=== PATIENT | female | born 1985 | race Caucasian/White ===

== ENCOUNTER 2019-11-25 17:35 | Inpatient (IN) | payer BC, SELFPAY ==
[2019-11-25] VITALS (10 sets, daily range): BP systolic 114–141; BP diastolic 62–78; PULSE 68–91; TEMP 36.8–36.9; BMI 37.8
--- NOTE | 2019-11-25 18:15 | PC.NURSE ---
Called Dr. Emanuel to confirm antibiotic order for positive GBS. Informed of allergies. OK to give Ampicillin.
[2019-11-25 18:26] LABS: Basophils Percent Auto 0.5 % (0.2-1.2); Eosinophils Absolute Auto 0.1 K/mm3 (0-0.3); Eosinophils Percent Auto 1.5 % (0-4.4); Hematocrit 36.7 % (37.0-47.0); Hemoglobin 12.1 g/dL (12.0-15.0); Immature Granulocyte Absolute 0.04 K/mm3 (0.00-0.031); Immature Granulocyte Percent A 0.5 % (0-0.5); Lymphocytes Absolute Auto 1.43 K/mm3 (0.9-3.2); Lymphocytes Percent Auto 16.5 % (18.3-44.2); Mean Corpuscular Hemoglobin 28.1 pg (26-34); Mean Corpuscular Volume 85.3 fl (80-100); Mean Platelet Volume 9.8 fl (7.4-10.4); Monocytes Absolute Auto 0.7 K/mm3 (0.1-0.6); Monocytes Percent Auto 7.5 % (2.6-8.5); Neutrophils Absolute Auto 6.4 K/mm3 (1.3-6.7); Neutrophils Percent Auto 73.5 % (45.5-73.1); Platelet Count Result 312 k/mm3 (150-375); Red Cell Distribution Width 14.4 % (11.5-14.5); White Blood Count 8.7 K/mm3 (4.5-10.0)
[2019-11-25] MEDS: DINOPROSTONE 10 MG VAG INSERT VAGINAL (18:49)
[2019-11-25] MEDS: LACTATED RINGERS 1,000 ML 125 ML IV CONT ×2 (18:50→23:01)
[2019-11-25] MEDS: AMPICILLIN 2 GM/NS 100 ML 2 GM/100 ML BAG IVPB (18:51)
[2019-11-25] MEDS: AMPICILLIN 1 GM/NS 50 ML 1 GM/50 ML BAG IVPB (23:00)
[2019-11-25] MEDS: ESCITALOPRAM OXALATE 10 MG TABLET 20 MG PO (23:26)
[2019-11-26] VITALS (60 sets, daily range): BP systolic 87–155; BP diastolic 46–124; PULSE 59–108; RESP 16–18; TEMP 36.6–37; O2SAT 89–100
--- NOTE | 2019-11-26 05:59 | WPDANESEPP ---
Anes - Eval Pre Procedure Procedure: labor epidural Date/Time: 11/26/19 05:59 Surgeon: chanda Preop Diagnosis: Abd pain with contractions Pre Op Diagnosis: Inductio of Labor Patient Data Age: 34 Gender: F Height: 5 ft 4 in Weight: 100 kg Last Vital Signs Temp 97.9 F 11/26/19 03:00 Pulse 66 11/26/19 03:06 BP 112/61 11/26/19 03:06 Allergies Allergy/AdvReac Type Severity Reaction Status Date / Time cephalexin [From Keflex] Allergy Other Verified 10/29/19 15:47 Home Medications Medication Instructions Recorded Confirmed Type PNV cmb#95-ferrous fumarate-FA 1 tablet PO DAILY 10/29/19 10/29/19 History [] albuterol sulfate 2 puff INHALATION QID PRN 10/29/19 10/29/19 History aspirin [Adult Low Dose Aspirin] 81 mg PO DAILY 10/29/19 10/29/19 History cetirizine [Zyrtec] 10 mg PO DAILY 10/29/19 10/29/19 History cholecalciferol (vitamin D3) 125 mcg PO DAILY 10/29/19 10/29/19 History [Vitamin D3] docusate sodium [Colace] 100 mg PO DAILY 10/29/19 10/29/19 History escitalopram oxalate [Lexapro] 20 mg PO DAILY 10/29/19 10/29/19 History omeprazole 10 mg PO ONCE 10/29/19 10/29/19 History simethicone [Gas-X Extra Strength] 125 mg PO DAILY PRN 10/29/19 10/29/19 History Laboratory Tests 11/25/19 11/25/19 11/25/19 18:12 18:12 18:12 WBC 8.7 K/mm3 K/mm3 (4.5-10.0) RBC 4.30 M/mm3 M/mm3 (4.2-5.4) Hgb 12.1 g/dL g/dL (12.0-15.0) Hct 36.7 % L % (37.0-47.0) MCV 85.3 fl fl (80-100) MCH 28.1 pg pg (26-34) MCHC 33.0 g/dl g/dl (32-36) RDW 14.4 % % (11.5-14.5) Plt Count 312 k/mm3 k/mm3 (150-375) MPV 9.8 fl fl (7.4-10.4) Immature Gran % (Auto) 0.5 % % (0-0.5) Neut % (Auto) 73.5 % H % (45.5-73.1) Lymph % (Auto) 16.5 % L % (18.3-44.2) [place] % (Auto) 7.5 % % (2.6-8.5) Eos % (Auto) 1.5 % % (0-4.4) Baso % (Auto) 0.5 % % (0.2-1.2) Lymph # (Auto) 1.43 K/mm3 K/mm3 (0.9-3.2) [place] # (Auto) 0.7 K/mm3 H K/mm3 (0.1-0.6) Eos # (Auto) 0.1 K/mm3 K/mm3 (0-0.3) Baso # (Auto) 0.0 K/mm3 K/mm3 (0.0-0.1) Abs Immat Gran (auto) 0.04 K/mm3 H K/mm3 (0.00-0.031) Absolute Neuts (auto) 6.4 K/mm3 K/mm3 (1.3-6.7) Absolute Nucleated RBC 0.0 K/mm3 K/mm3 (0.0-0.012) Nucleated RBC % 0.0 % % (0.0-0.2) RPR Pending Blood Type A Positive Antibody Screen Negative Patient hx anesthesia problems: none Family hx anesthesia problems: none [facility] Past Medical History Medical History Anxiety and depression Chlamydia GERD (gastroesophageal reflux disease) Obesity and not yet delivered Family History Family History Grandparent Hypertension High cholesterol Mother Asthma High cholesterol Sibling Asthma Social History Social History Smoking status: Current some day smoker Tobacco type: cigarettes Second hand tobacco smoke exposure: No Substance use: current Last use: 3 WEEKS AGO Gender identity (if verbalized by the patient): Female Spiritual care concerns: Yes (WOULD LIKE MACHINE CARTON MARKER TO SEE HER IF SOMETHING WERE TO HAPPEN TO HER) Exam Day of Procedure 11/26/19 05:59 Patient weight: obese Airway: Mallampati scale class II Neurological: alert and oriented
[2019-11-26 06:43] LABS: Rapid Plasma Reagin Non-Reactive (NonReactive)
[2019-11-26] MEDS: AMPICILLIN 1 GM/NS 50 ML 1 GM/50 ML BAG IVPB ×2 (07:19→11:20)
[2019-11-26] MEDS: OXYTOCIN 30 UNITS/NS 500 ML 30 UNITS/500 ML BAG 6 UNITS IV CONT ×2 (07:20→12:45)
--- NOTE | 2019-11-26 07:42 | WPDOBADMIT ---
Obstetrics - Admit Note Admission Note: record reviewed. No pertinent additions to the history and/or any subsequent changes in the physical findings that are not consistent with the expected course of the were found. Additions to the history and/or subsequent changes in the physical findings follow. None.Here for MIL at 39 2/7 wks. Cervix now /-2 anterior. Feels like scarred from LEEP. AROM with meconium. Explained to patient and and peds will be notified by RN. FHTs reactive.
[2019-11-26] MEDS: ONDANSETRON INJ 4 MG/2 ML VIAL IV PUSH (09:57)
[2019-11-26] MEDS: LACTATED RINGERS 1,000 ML 125 ML IV CONT (10:01)
--- NOTE | 2019-11-26 12:27 | PM.OBPRVD ---
OB - Delivery Note Procedure Delivery date: 11/26/19 Procedure: events: Labor Induction Induction method: AROM, per pitocin protocol and other (cervadil) Delivery monitor: external FHT and external uterine Route of delivery: Laceration description: Periurethral - 2nd Degree (right between labia minora and clitoral garcia; 2nd degree perineal left mediolateral) Delivery repair: vicryl (3-0 ) Specimen: Yes (placenta) Estimated blood loss (mL): 200 Anesthesia type: Epidural Disposition: floor Baby Weeks of gestation at delivery: 39 gender: Female Weight (pounds): 6 Weight (ounces): 4 presentation: vertex Placenta delivery description: Spontaneous cord vessel description: 3 Vessels score one minute: 6 score five minutes: 9 Narrative: meconium noted at AROM and peds notified but not present for delivery; per RN was told to call if needed
--- NOTE | 2019-11-26 12:30 | PM.OBDSVD ---
DS: Discharge Diagnosis Discharge Diagnosis (1) (normal spontaneous vaginal delivery): Code(s): O80 - Encounter for full-term uncomplicated delivery Status: Acute (2) 39 weeks gestation of : Code(s): Z3A.39 - 39 weeks gestation of Status: Acute OB - DS: Summary OB Procedures : Ultrasound OB Procedures Intrapartum: Spontaneous Vag Delivery OB Procedures: : None Peripartum Data Delivery Method: Natural Vaginal Laceration description: Periurethral - 2nd Degree (right between labia minora and clitoral garcia; 2nd degree perineal LML) complications: none Status at Discharge Functional status at discharge: independent ambulation Overall status at discharge: patient is progressing back to baseline Time Spent with Patient Time attestation: Total time spent providing and/or coordinating discharge services: DS: Data Data Completed and Pending Labs on day of discharge: Labs from last 24 hours 11/25/19 11/25/19 11/25/19 18:12 18:12 18:12 WBC 8.7 RBC 4.30 Hgb 12.1 Hct 36.7 L MCV 85.3 MCH 28.1 MCHC 33.0 RDW 14.4 Plt Count 312 MPV 9.8 Immature Gran % (Auto) 0.5 Neut % (Auto) 73.5 H Lymph % (Auto) 16.5 L [place] % (Auto) 7.5 Eos % (Auto) 1.5 Baso % (Auto) 0.5 Lymph # (Auto) 1.43 [place] # (Auto) 0.7 H Eos # (Auto) 0.1 Baso # (Auto) 0.0 Abs Immat Gran (auto) 0.04 H Absolute Neuts (auto) 6.4 Absolute Nucleated RBC 0.0 Nucleated RBC % 0.0 RPR Non-reactive Blood Type A Positive Antibody Screen Negative Discharge Plan Discharge Attending physician on discharge: Fanny Emanuel Discharging Clinician: Fanny Emanuel Anticipated Discharge Date/Time: 11/27/19 00:32 Patient Disposition: Home, Self-Care Activity: pelvic rest Diet: regular Discharge Instructions: Education: Mom and Baby Guide Given to: Mother Follow-Up: Call your delivering provider's office for an appointment to be seen in: 4 Weeks Mom and baby should come to the [facility] for the follow-up appointment. Appointment Date/Time: December 01, 2019 at 11:00 am What to expect at your follow-up visit: Blood Pressure Check Physical Assessment Call [phone] if you are unable to keep your appointment time. BREAST CARE: 1. Wear a snug supportive bra. 2. For engorgement discomfort: Breast Feeding: A. Apply warm moist washcloths B. Express milk as needed to relieve engorgement C. Wear loose clothing Bottle Feeding: A. May apply ice packs 3. For sore nipples: A. Identify correct latch-on B. Apply warm moist washcloths before and after nursing C. Air dry nipples after nursing D. May apply Lansinoh cream to nipples EPISIOTOMY/PERINEAL CARE: 1. Until bleeding stops, use your la bottle after urinating 2. Change your pad frequently throughout the day 3. You may take sitz baths several times a day (fill your bathtub with warm water and soak for 20 minutes.) Do NOT bathe in the water 4. No tub baths until seen by your physician - You may shower ACTIVITY: 1. Rest as much as possible. 2. Do not exercise or lift anything heavier than your baby (such as laundry or other children.) 3. Avoid stairs or driving as much as possible. 4. Do not put anything into the vagina. No douching, tampons, or sexual activity until seen by physician. NOTIFY PHYSICIAN IF YOU HAVE ANY QUESTIONS OR IF ANY OF THE FOLLOWING SYMPTOMS OCCUR: 1. If your perineum becomes red, swollen, or more painful than what you have experienced in the hospital. 2. If your vaginal bleeding becomes foul smelling. 3. If your vaginal bleeding becomes more heavy than a period or if your bleeding changes from pink to bright red. However, you may pass an occasional walnut-sized clot once or twice for the first w
[2019-11-26] MEDS: IBUPROFEN 600 MG TABLET (15:13)
[2019-11-26] MEDS: WITCH HAZEL 40 PADS 1 PAD (15:14)
[2019-11-26] MEDS: BENZOCAINE 20% AER SPR (*SP) 56 GM CAN 1 SPRAY (15:14)
--- NOTE | 2019-11-26 17:37 | PC.NURSE ---
1527-Patient transferred to post room #283 via wheelchair. Support person present. Oriented to unit, room, information board, rooming in, admission packet and security measures. Patient verbalizes understanding.
[2019-11-26] MEDS: ESCITALOPRAM OXALATE 10 MG TABLET 20 MG PO (20:20)
[2019-11-26] MEDS: ACETAMINOPHEN 325 MG TABLET 650 MG PO (20:20)
[2019-11-26] MEDS: IBUPROFEN 600 MG TABLET PO (23:55)
[2019-11-27] MEDS: ACETAMINOPHEN 325 MG TABLET 650 MG PO ×2 (05:10→20:00)
[2019-11-27 05:33] LABS: Hematocrit 31.4 % (37.0-47.0); Hemoglobin 10.1 g/dL (12.0-15.0)
--- NOTE | 2019-11-27 07:28 | WPDANLDPN2 ---
Anes-Prog Note L&D Date/Time: 11/27/19 07:28 Comfortable throughout: labor and delivery Neuraxial method: epidural Epidural/Spinal procedure site: clean & non-tender Neuro status: Neuro function grossly intact. Cardiovascular status: normal Respiratory status: normal Airway patency: baseline Mental status: baseline Post-Op hydration status: normal Vital Signs: Last Vital Signs Temp 36.8 C 11/26/19 19:00 Pulse 87 11/26/19 19:00 Resp 16 11/26/19 19:00 BP 101/58 L 11/26/19 19:00 Pulse Ox 99 11/26/19 15:36 I/O: Intake & Output 11/26/19 11/26/19 11/27/19 15:59 23:59 07:59 Intake Total 500 Balance 500 Post-procedural complaints: none Patient feedback: Patient satisfied with anesthetic care.
[2019-11-27] MEDS: MULTIVIT/MIN/PREN/FOL AC/IRON TABLET 1 TAB PO (07:54)
[2019-11-27] MEDS: DOCUSATE SODIUM 100 MG CAPSULE PO (07:54)
[2019-11-27] MEDS: IBUPROFEN 600 MG TABLET PO ×2 (07:55→16:28)
[2019-11-27 08:00] VITALS: BP 118/69; PULSE 84; RESP 18; TEMP 36.7; O2SAT 98
--- NOTE | 2019-11-27 09:19 | P.PNOB_ITS ---
OB - PN: Subj Subjective Date/time seen: 11/27/19 09:19 Patient comments: no complaints baby status: doing well [place] feeding status: exclusively breast feeding OB - PN: Obj Data Labs CBC & Chem 7: 11/27/19 05:09 Labs: Laboratory Results - last 24 hr 11/27/19 05:09 Hgb 10.1 L Hct 31.4 L OB - PN A/P Plan day: 1 Plan: routine care, discharge home (possible dc pending peds decision) and follow up 6 weeks Comments: plans micronor for bc Time Spent With Patient Time: Total time spent is greater than 50% in coordination of care (as documented) at patient's floor/unit and/or counseling patient: Exam : Bimanual exam- vagina & uterus: other (Uterus firm, nt @U)
--- NOTE | 2019-11-27 10:20 | PC.NURSE ---
Consult with pt., mother reports she wishes to pump and bottle feed. Mother has attempted and put to breast a few times since using a nipple shield. Mother states she has attempted to left breast with shield and would like to attempt on right breast with shield. Mother states she will be off for 10 weeks and would like to maybe put to breast the few week a few times, then pump and bottle only. Discussed latch and possible difficulties with only latching a few times. Discussed nipple shield precautions and possible complications. Instructions given on application and cleaning of shield. Patient able to return demonstration on proper application of shield. Discussed the need to initiate regular pumping if continues to nurse with the shield. Patient verbalizes understanding. Reviewed feeding cues, frequencies, duration of feedings, feeding elimination flow sheet, and signs of adequate intake. Demonstrated stimulation techniques to wake infant for feeding. Assisted with infant to breast with shield. Reviewed positioning/alignment in football, holding breast in C hold and guided asymmetrical latch on. Discussed rational for each. Infant was able to latch correctly. nursed eagerly, with steady draws and occasional swallowing noted. Reviewed signs of a correct latch, effective nursing and suck swallow ratio. Infant was able to maintain latch without discomfort to mother. Mother allowed to nurse for a few minutes and removed infant from breast for FOB to bottle feed. Mother states she will pump. Reviewed instructions given on breast pump care and usage, pumping schedule, nipple care, and collection and storage of breast milk. Encouraged [id number], breast massage and manual expression to stimulate supply. Assessed patient for correct flange size, placement and draw. Patient verbalizes and demonstrates understanding of instructions.
[2019-11-27 19:50] VITALS: BP 99/59; PULSE 74; RESP 16; TEMP 36.7
[2019-11-27] MEDS: ESCITALOPRAM OXALATE 10 MG TABLET 20 MG PO (20:55)
[2019-11-28] MEDS: IBUPROFEN 600 MG TABLET PO ×2 (02:30→08:19)
[2019-11-28] MEDS: WITCH HAZEL 40 PADS 1 PAD TOPICAL (08:18)
[2019-11-28] MEDS: ACETAMINOPHEN 325 MG TABLET 650 MG PO (08:18)
[2019-11-28] MEDS: DOCUSATE SODIUM 100 MG CAPSULE PO (08:18)
[2019-11-28] MEDS: MULTIVIT/MIN/PREN/FOL AC/IRON TABLET 1 TAB PO (08:18)
[2019-11-28 08:30] VITALS: BP 112/64; PULSE 74; RESP 18; TEMP 37.2
--- NOTE | 2019-11-28 11:02 | PM.OBPNVD ---
OB - PN: Subj Subjective Date/time seen: 11/28/19 11:02 doing okay mild pain with urination from tear. OB - PN: Obj Data Labs CBC & Chem 7: 11/27/19 05:09 OB - PN A/P Assessment and Plan (1) (normal spontaneous vaginal delivery): Code(s): O80 - Encounter for full-term uncomplicated delivery Status: Acute Assessment and Plan: d/c home with f/u in 6 weeks Time Spent With Patient Time: Total time spent is greater than 50% in coordination of care (as documented) at patient's floor/unit and/or counseling patient: Exam GI: Other: ff below umbilicus
--- NOTE | 2019-11-28 15:12 | PC.NURSE ---
1000 parents viewed the discharge DVD.
[2019-12-01 10:54] VITALS: BP 136/82; PULSE 66; RESP 16; TEMP 36.8; O2SAT 98
== END 2019-11-28 14:13 | disposition home or self-care (01) | DRG 807 ==
LOC: ANHLDR 11-26 12:33 → ANHOB2 11-27 09:26 → ANHLDR 12-02 07:50 → ANHOB2 12-02 07:50
PROVIDERS: Admitting Provider Obstetrics & Gynecology Gynecology; Visit Provider Obstetrics & Gynecology
DX: O99.824 Streptococcus B carrier state complicating childbirth (principal); Z37.0 Single live birth; O77.0 Labor and delivery complicated by meconium in amniotic fluid; O69.81X0 Labor and delivery complicated by cord around neck, without compression, not applicable or unspecified; O71.82 Other specified trauma to perineum and vulva; Z3A.39 39 weeks gestation of pregnancy; F17.210 Nicotine dependence, cigarettes, uncomplicated; O99.334 Smoking (tobacco) complicating childbirth; O99.214 Obesity complicating childbirth; E66.9 Obesity, unspecified
CPT/HCPCS: 36415; 85014; 85018; 85025; 86592; 86850; 86900; 86901; A9270; J0290; J1200; J2405; J2590; J2795; J3010; J7120

== ENCOUNTER → 2022-12-04 15:14 | Outpatient (CLI) | payer BC, SELFPAY ==
--- NOTE | ~2022-12-04 | US_ITS ---
Pelvic ultrasound. Clinical History: First trimester , uncertain dates Technique: Realtime transabdominal and transvaginal scanning of the pelvis was performed. Color flow Doppler and Doppler spectral analysis were performed. Findings: The uterus is anteverted, and contains an intrauterine gestation. Organ-rump length of 1.9 cm corresponds to an estimated gestational age of 8 weeks 3 days. heart rate is 163 bpm. There is a small cystic area adjacent to the gestational sac measuring 1 cm in maximum diameter, possibly a small subchronic hemorrhage. The right ovary measures 1.5 x 2.6 x 1.5 cm. No significant right ovarian or adnexal mass is seen. The left ovary measures 1.9 x 2.8 x 1.8 cm. No significant left ovarian or adnexal mass is seen. There is no evidence of free fluid in the cul de sac. Impression: Live intrauterine gestation with estimated gestational age of 8 weeks 3 days. heart rate is 163 bpm. Sonographic HIMA is 07/14/2023. Possible small subchorionic hemorrhage, as detailed above. Reviewed, dictated and finalized at location M. Impression: Live intrauterine gestation with estimated gestational age of 8 weeks 3 days. F etal heart rate is 163 bpm. Sonographic HIMA is 07/14/2023. Possible small subchorionic hemorrhage, as detailed above.
== END ==
PROVIDERS: PCP Obstetrics & Gynecology Gynecology; Visit Provider Obstetrics & Gynecology Gynecology
DX: Z36.87 Encounter for antenatal screening for uncertain dates (principal); Z3A.08 8 weeks gestation of pregnancy
CPT/HCPCS: 76801

== ENCOUNTER → 2022-12-24 15:54 | Outpatient (CLI) | payer BC, SELFPAY ==
--- NOTE | ~2022-12-24 | US_ITS ---
EXAMINATION: US OB <= 14 weeks fetus DATE: 12/24/2022 16:24 INDICATION: Follow-up subchorionic hematoma TECHNIQUE: Real-time transabdominal obstetric ultrasound. FINDINGS: Comparison to ultrasound dated 12/04/2022 The uterus measures 12.7 x 7.5 x 9.3 cm. There is an intrauterine gestational sac, with pole id entified. There is a small subchorionic hematoma measuring 9 x 5 x 4 mm. The crown rump length measur es 4.2 cm. heart tones are identified measuring 171 BPM. IMPRESSION: 1. SL IUP with an EGA of 11 weeks, 1 days (EDC by current ultrasound of 07/14/2023). 2: Small subchorionic hematoma measuring 9 x 4 x 5 mm. Reviewed, dictated and finalized at location [] IMPRESSION: 1. SL IUP with an EGA of 11 weeks, 1 days (EDC by current ultrasound of 024). 2: Small subchorionic hematoma measuring 9 x 4 x 5 mm.
== END ==
PROVIDERS: PCP Obstetrics & Gynecology Gynecology; Visit Provider Obstetrics & Gynecology Gynecology
DX: O36.8910 Maternal care for other specified fetal problems, first trimester, not applicable or unspecified (principal); Z3A.11 11 weeks gestation of pregnancy
CPT/HCPCS: 76801

== ENCOUNTER → 2023-01-23 14:47 | Outpatient (CLI) | payer BC, SELFPAY ==
--- NOTE | ~2023-01-23 | US_ITS ---
EXAMINATION: US OB follow up DATE: 01/23/2023 15:18 INDICATION: Subchorionic hematoma follow-up. Second trimester. TECHNIQUE: Real-time ultrasound of the pelvis was performed. COMPARISON: Ultrasound 12/24/2022 FINDINGS: There is a single living fetus in variable presentation. The placenta is posterior and covers the in ternal cervical os. There is no subchorionic hematoma. heart rate is 145 beats per minute (bpm) . The cervical length is 3.8 cm on transabdominal images, which is normal. The amniotic fluid volume is subjectively normal. IMPRESSION: 1. Single living fetus in variable presentation. 2. No subchorionic hematoma. 3. Placenta previa. Follow-up ultrasound is recommended to confirm resolution. Reviewed, dictated and finalized at location A.
== END ==
PROVIDERS: PCP Advanced Practice Midwife; Visit Provider Advanced Practice Midwife
DX: O36.8920 Maternal care for other specified fetal problems, second trimester, not applicable or unspecified (principal); Z3A.00 Weeks of gestation of pregnancy not specified; O44.42 Low lying placenta NOS or without hemorrhage, second trimester
CPT/HCPCS: 76816

== ENCOUNTER 2023-07-11 05:14 | Inpatient (IN) | payer BC, SELFPAY ==
[2023-07-11] VITALS (83 sets, daily range): BP systolic 81–134; BP diastolic 51–94; PULSE 61–149; RESP 16–18; TEMP 36.2–36.6; O2SAT 98–100; BMI 36.7
--- NOTE | 2023-07-11 05:58 | LDADM ---
This patient, Bailey Newman, was admitted to Labor/Delivery/Recovery 104 on 07/11/23 at 05:14. Plans for labor, pain management and were discussed with patient. Patient/family oriented to hospital policies and general routines including ID bracelet, bed and alarms, visiting hours, pain management, procedures, bathroom and other care routines, personal items, smoking policy, room service/diet and guest tray routines, infant security routines, and visiting hours. Patient/Family are encouraged to report perceived risks to care and to ask questions if they do not understand what they are told or what they should do. See OBIX for further documentation.
[2023-07-11 06:26] LABS: Basophils Percent Auto 0.6 % (0.2-1.2); Eosinophils Absolute Auto 0.1 K/mm3 (0-0.3); Hematocrit 34.6 % (37.0-47.0); Hemoglobin 11.4 g/dL (12.0-15.0); Immature Granulocyte Absolute 0.03 K/mm3 (0.00-0.031); Immature Granulocyte Percent A 0.4 % (0-0.5); Lymphocytes Absolute Auto 1.75 K/mm3 (0.9-3.2); Lymphocytes Percent Auto 26.2 % (18.3-44.2); Mean Corpuscular HGB Conc 32.9 g/dl (32-36); Mean Corpuscular Hemoglobin 28.4 pg (26-34); Mean Corpuscular Volume 86.3 fl (80-100); Mean Platelet Volume 10.1 fl (7.4-10.4); Monocytes Absolute Auto 0.5 K/mm3 (0.1-0.6); Monocytes Percent Auto 7.3 % (2.6-8.5); Neutrophils Absolute Auto 4.3 K/mm3 (1.3-6.7); Neutrophils Percent Auto 64.5 % (45.5-73.1); Platelet Count Result 260 k/mm3 (150-375); Red Blood Count 4.01 M/mm3 (4.2-5.4); Red Cell Distribution Width 13.3 % (11.5-14.5); White Blood Count 6.7 K/mm3 (4.5-10.0)
[2023-07-11] MEDS: LACTATED RINGERS 1,000 ML 125 ML IV CONT ×2 (06:47→07:54)
[2023-07-11] MEDS: OXYTOCIN 30 UNITS/NS 500 ML 30 UNITS/500 ML BAG IV CONT (06:53)
--- NOTE | 2023-07-11 08:14 | WPDOBADMIT ---
Obstetrics - Admit Note Admission Note: record reviewed. No pertinent additions to the history and/or any subsequent changes in the physical findings that are not consistent with the expected course of the were found. Additions to the history and/or subsequent changes in the physical findings follow. None.
--- NOTE | 2023-07-11 08:15 | PM.OBPNLAB ---
Pain Control Date/time seen: 07/11/23 08:05 Pain control: tolerating well Pelvic Exam Dilation (cm): 1 (1.5) Effacement (%): 80 station: -3 Amniotic membrane status: Bulging Comments: head well applied. Contractions Monitor mode: External Contraction pattern: Irregular Contraction intensity: Mild Status status: Category l Assessment and Plan Assessment: induction ongoing Comments: CNM to bedside. Discussed plan of care an option for amniotomy. Discussed risks, benefits, and expectations of breaking water. Patient is agreeable. Amniotomy performed and there was a moderate return of clear amniotic fluid. Patient tolerated procedure well. Dr. Jenae villalobos MD assuming care for pt.
--- NOTE | 2023-07-11 08:23 | WPDANESEPP ---
Anes - Eval Pre Procedure Procedure: Labor Epidural Date/Time: 07/11/23 08:23 Surgeon: Jenae Preop Diagnosis: Pain during labor Pre Op Diagnosis: IOL Patient Data Age: 37 Gender: F Height: 1.63 m Weight: 97 kg Last Vital Signs Temp 36.2 C L 07/11/23 08:00 Pulse 91 07/11/23 08:01 BP 125/72 07/11/23 08:01 O2 Del Method Room Air 07/11/23 05:57 Allergies Allergy/AdvReac Type Severity Reaction Status Date / Time cephalexin [From Keflex] Allergy Other Verified 06/28/23 12:48 doxycycline Allergy Hives Verified 06/28/23 12:48 Latex, Natural Rubber Allergy Rash Verified 06/28/23 12:48 Home Medications Medication Instructions Recorded Confirmed Type cholecalciferol (vitamin D3) 125 125 mcg PO DAILY 10/29/19 10/29/19 History mcg (5,000 unit) tablet (Vitamin D3) vit no.95-ferrous 1 tablet PO DAILY 10/29/19 10/29/19 History fumarate 28 mg-folic acid 800 mcg tablet () omeprazole 20 mg tablet,delayed 20 mg PO DAILY 06/28/23 06/28/23 History release Laboratory Tests 07/11/23 05:38 WBC 6.7 K/mm3 (4.5-10.0) RBC 4.01 L M/mm3 (4.2-5.4) Hgb 11.4 L g/dL (12.0-15.0) Hct 34.6 L % (37.0-47.0) MCV 86.3 fl (80-100) MCH 28.4 pg (26-34) MCHC 32.9 g/dl (32-36) RDW 13.3 % (11.5-14.5) Plt Count 260 k/mm3 (150-375) MPV 10.1 fl (7.4-10.4) Immature Gran % (Auto) 0.4 % (0-0.5) Neut % (Auto) 64.5 % (45.5-73.1) Lymph % (Auto) 26.2 % (18.3-44.2) [place] % (Auto) 7.3 % (2.6-8.5) Eos % (Auto) 1.0 % (0-4.4) Baso % (Auto) 0.6 % (0.2-1.2) Lymph # (Auto) 1.75 K/mm3 (0.9-3.2) [place] # (Auto) 0.5 K/mm3 (0.1-0.6) Eos # (Auto) 0.1 K/mm3 (0-0.3) Baso # (Auto) 0.0 K/mm3 (0.0-0.1) Abs Immat Gran (auto) 0.03 K/mm3 (0.00-0.031) Absolute Neuts (auto) 4.3 K/mm3 (1.3-6.7) Absolute Nucleated RBC 0.0 K/mm3 (0.0-0.012) Nucleated RBC % 0.0 % (0.0-0.2) RPR Pending Blood Type A Positive Antibody Screen Negative Patient hx anesthesia problems: none Family hx anesthesia problems: none Results Review: All pre-operative results and documents have been reviewed as part of the pre-operative evaluation. [facility] Past Medical History Medical History Anxiety and depression Chlamydia GERD (gastroesophageal reflux disease) Obesity and not yet delivered Family History Family History Grandparent Hypertension High cholesterol Mother Asthma High cholesterol Sibling Asthma Social History Social History Smoking status: Former smoker Tobacco type: cigarettes Smokeless tobacco user: other Second hand tobacco smoke exposure: No Smoking end date: 10/06/22 Substance use: former Last use: 1st trimester Do You Feel Safe in your Home?: Yes Lack of Transportation: No Lack of Food: Never True Current Housing: I Have Housing Concerned About Future Housing: No Difficulty Paying Gas/Electric Bills: No Difficulty Paying for Meds: No Currently Unemployed: No Education: High School Diploma/GED Difficulty w/ Childcare or Family Care: No Gender identity (if verbalized by the patient): Female Spiritual care concerns: No Exam Day of Procedure 07/11/23 08:23 Patient weight: obese Neurological: alert and oriented
--- NOTE | 2023-07-11 12:01 | PM.OBPRVD ---
OB - Vaginal Delivery Note Procedure Delivery date: 07/11/23 Induction method: AROM and Per Pitocin Protocol Delivery monitor: External FHT and External Uterine Route of delivery: Episiotomy description: None Laceration Description: Perineal - 1st Degree (right) Delivery repair: vicryl (3-0 on sh) Specimen: No Quantitative Blood Loss (ml): 100 Anesthesia type: Epidural Disposition: Floor Complications: No immediate complications Baby Date of : 07/11/23 Weeks of gestation at delivery: 39 Infant gender: Female presentation: vertex position: Right Occiput Anterior Placenta delivery description: Spontaneous Cord Vessel Description: 3 Vessels and Delayed Cord Clamping score one minute: 8 score five minutes: 9
--- NOTE | 2023-07-11 12:03 | P.DS_ITS ---
DS: Admitting Diagnosis Discharge Date 07/13/23 Admitting Diagnosis IUP 39 wks for KAROL DS: Discharge Diagnosis Discharge Diagnosis (1) (normal spontaneous vaginal delivery): Code(s): O80 - Encounter for full-term uncomplicated delivery Status: Acute OB - DS: Summary OB Procedures : Ultrasound OB Procedures Intrapartum: Spontaneous Vag Delivery OB Procedures: : None Peripartum Data Infant Delivery Method: Natural Vaginal Laceration Description: Perineal - 1st Degree (right) Episiotomy description: None complications: none Status at Discharge Functional status at discharge: independent ambulation Overall status at discharge: patient is progressing back to baseline Time Spent with Patient Time attestation: Total time spent providing and/or coordinating discharge services: DS: Data Data Completed and Pending Labs on day of discharge: Labs from last 24 hours 07/11/23 05:38 WBC 6.7 RBC 4.01 L Hgb 11.4 L Hct 34.6 L MCV 86.3 MCH 28.4 MCHC 32.9 RDW 13.3 Plt Count 260 MPV 10.1 Immature Gran % (Auto) 0.4 Neut % (Auto) 64.5 Lymph % (Auto) 26.2 [place] % (Auto) 7.3 Eos % (Auto) 1.0 Baso % (Auto) 0.6 Lymph # (Auto) 1.75 [place] # (Auto) 0.5 Eos # (Auto) 0.1 Baso # (Auto) 0.0 Abs Immat Gran (auto) 0.03 Absolute Neuts (auto) 4.3 Absolute Nucleated RBC 0.0 Nucleated RBC % 0.0 RPR Pending Blood Type A Positive Antibody Screen Negative Discharge Plan Discharge Attending physician on discharge: Fanny Emanuel Discharging Clinician: Fanny Emanuel Anticipated Discharge Date/Time: 07/12/23 12:03 Patient Disposition: Home, Self-Care Activity: no shower, may shower and pelvic rest Diet: regular Discharge Instructions: Continue taking your vitamin and any other supplements as previously directed (Examples: Iron, Vitamin D). You may take Tylenol 1000mg over the counter every 6 hours as needed for pain. Do not exceed 4000mg of Tylenol daily. You may continue using tucks pads and dermoplast spray if needed for a few more days. Patient Instructions: Antibiotic Form Stand Alone Forms: General Discharge Information Follow-up/Referrals: Fanny Emanuel MD [Physician] - 6 Weeks Discharge Medications: New docusate sodium 100 mg Capsule 100 mg PO BID PRN (Reason: Constipation) Qty: 60 0RF ibuprofen 600 mg Tablet 600 mg PO Q6H PRN (Reason: Cramping) Qty: 30 0RF norethindrone (contraceptive) 0.35 mg tablet 0.35 mg PO DAILY Qty: 84 3RF Continued cholecalciferol (vitamin D3) [Vitamin D3] 125 mcg (5,000 unit) Tablet 125 mcg PO DAILY PNV cmb#95-ferrous fumarate-FA [] 28 mg iron- 800 mcg Tablet 1 tablet PO DAILY omeprazole 20 mg Tablet,Delayed Release (Dr/Ec) 20 mg PO DAILY Date of admission: 07/11/23 05:14 Primary Care Provider: PHYSICIAN,POST ACUTE CARE NURSE Admitting Provider: Fanny Emanuel Attending physician on admission: Fanny Emanuel Condition: Stable
[2023-07-11] MEDS: OXYTOCIN 30 UNITS/NS 500 ML 30 UNITS/500 ML BAG 125 UNITS IV CONT (12:16)
[2023-07-11] MEDS: WITCH HAZEL 40 PADS 1 PAD TOPICAL (14:24)
[2023-07-11] MEDS: BENZOCAINE 20% AER SPR (*SP) 56 GM CAN 1 SPRAY TOPICAL (14:25)
[2023-07-11 15:53] LABS: Rapid Plasma Reagin Non-Reactive (NonReactive)
[2023-07-11] MEDS: IBUPROFEN 600 MG TABLET PO (16:15)
--- NOTE | 2023-07-11 17:53 | OBPPTRN ---
1508-Patient transferred to post room #290 via wheelchair. Support person present. Oriented to unit, room, information board, rooming in, admission packet and security measures. Patient verbalizes understanding.
[2023-07-11] MEDS: ACETAMINOPHEN 325 MG TABLET 650 MG PO (19:52)
[2023-07-11] MEDS: SIMETHICONE 80 MG TAB.CHEW PO (19:52)
[2023-07-12] MEDS: IBUPROFEN 600 MG TABLET PO ×3 (01:00→20:51)
[2023-07-12 04:50] VITALS: BP 117/71; PULSE 61; RESP 16; TEMP 36.6
[2023-07-12 05:19] LABS: Hematocrit 31.5 % (37.0-47.0); Hemoglobin 10.1 g/dL (12.0-15.0)
[2023-07-12 07:25] VITALS: BP 130/68; PULSE 63; RESP 16; TEMP 36.5; O2SAT 99
--- NOTE | 2023-07-12 07:51 | WPDANLDPN2 ---
Anes-Prog Note L&D Date/Time: 07/12/23 07:51 Comfortable throughout: labor and delivery Neuraxial method: epidural Epidural/Spinal procedure site: clean & non-tender Neuro status: Neuro function grossly intact. Cardiovascular status: normal Respiratory status: normal Airway patency: baseline Mental status: baseline Post-Op hydration status: normal Vital Signs: Last Vital Signs Temp 36.6 C 07/12/23 04:50 Pulse 61 07/12/23 04:50 Resp 16 07/12/23 04:50 BP 117/71 07/12/23 04:50 Pulse Ox 99 07/11/23 15:15 O2 Del Method Room Air 07/11/23 05:57 Pain score (VAS): 07/17 I/O: Intake & Output 07/11/23 07/11/23 07/12/23 15:59 23:59 07:59 Intake Total 500 500 500 Output Total 800 700 Balance 500 -300 -200 Post-procedural complaints: none Patient feedback: Patient satisfied with anesthetic care.
--- NOTE | 2023-07-12 08:04 | PM.OBPNVD ---
OB - PN: Subj Subjective Date/time seen: 07/12/23 0740 Interval history: Doing well. Urinating without difficulty. Denies passing any large clots. Denies dizziness with ambulating. Tolerating po food and fluids. Bonding with infant. Patient comments: no complaints and pain well controlled [place] baby status: doing well and nursing well [place] feeding status: exclusively breast feeding OB - PN: Obj Data Labs 07/12/23 04:53 Labs: Laboratory Results - last 24 hr 07/11/23 07/12/23 05:38 04:53 Hgb 10.1 L Hct 31.5 L RPR Non-reactive OB - PN A/P Assessment and Plan (1) (normal spontaneous vaginal delivery): Code(s): O80 - Encounter for full-term uncomplicated delivery Status: Acute (2) Mother currently breastfeeds: Status: Acute Plan day: 1 Plan: discharge home Comments: Desires DC home Time Spent With Patient Time: Total time spent is greater than 50% in coordination of care (as documented) at patient's floor/unit and/or counseling patient: Review of Systems Review of Systems: All systems reviewed & are unremarkable except as noted in HPI and below Exam Narrative: Alert and oriented. Mood is pleasant and cooperative. Perineum with minimal edema. Fundus firm and below umbilicus. Const: General: cooperative, healthy appearing, no acute distress and alert Orientation/consciousness: patient oriented x3 Limitations: no limitations Resp: Effort & Inspection: normal respiratory effort and able to speak in complete sentences Auscultation: clear to auscultation bilaterally Cardio: Rate: regular rate GI: Inspection: normal to inspection Auscultation: normal bowel sounds : General: Yes bladder normal to palpation External Female Exam: other (lochia WNL) Bimanual exam- vagina & uterus: bladder normal to palpation Other: Fundus firm and below U Skin: General skin exam: normal color and no rashes or lesions noted Neuro: General: patient oriented x3 and moves all extremities Cognition (Neuro): normal cognition Extrem: General: normal to inspection and no calf tenderness Psych: Appearance: grossly normal Mental Status: mental status grossly normal Affect: normal affect Thought process: Normal thought process present
[2023-07-12] MEDS: DOCUSATE SODIUM 100 MG CAPSULE PO (12:09)
[2023-07-12] MEDS: MULTIVIT/MIN/PREN/FOL AC/IRON TABLET 1 TAB PO (12:09)
[2023-07-12 12:17] VITALS: BP 122/71; PULSE 81; RESP 16; TEMP 36.6; O2SAT 99
--- NOTE | 2023-07-12 15:55 | PC.NURSE ---
Addendum entered by Lizzie Bolanos RN 07/16/23 12:47: Late entry - Mother declined initiating pumping at this consult related to her experience with her first child. Original Note: [id number] Introductions were made, then consulted with patient to assess needs related to . Mother led the conversation with her?plans to feed?her , the?experience so far, her history of pumping to feed her first related to not latching with use of a nipple shield. The parents work well together to latch infant to mothers large breast. Encouraged understanding of the benefits of skin to skin (demonstrating unwrapping and placing upright on her chest), stimulating with massage touch, changing positions to encourage wakefulness, how to watch for early feeding cues, responsive feeding, feeding on demand (aiming for 8-12 times in 24 hours, about every 2-3 hours), milk production, building/maintaining a milk supply, duration of feeding, signs of adequate intake/output and how to record on the feeding sheet. Mother works well with her with encouragement and education. Reviewed positioning and ear, shoulder, hip alignment, supporting the breast to facilitate a deep latch, asymmetrical latch (off-center), leading with the chin with a big, open, wide gape and body close to mother. Infant latched optimally to the right, then left breast in football and cross cradle position. Education given to the parents of how to visualize the suckling (with good rocking jaw motion), swallows (dropping of the lower jaw) and how to listen for drinking at the breast (the ka sound) versus non-nutritive sucking. Reviewed the pie demonstration and the intake, output, weight loss, jaundice not measured at this time, and blood sugar levels appropriate, and mother latching without pain is encouraging that going well. was able to maintain latch without pain to mother protecting the nipple with optimal positioning and latching. Encouraged supporting the wrist to promote a deep latch with the . Reviewed comfort measures of healing with a warm, wet washcloth to rinse breast, then leave open to air-dry, good handwashing when or touching the breast/nipples to prevent infection. Mother voiced understanding of skin to skin, stimulating with massage touch, responsive feedings, hand expressed colostrum, talking to infant to encourage if it has been 2 -2.5 hours since the start of the last , to call if infant does not latch, difficulty waking to breastfeed or if there is discomfort with . Resources used for education were facilitated with the visual educational handouts, tool, mom and baby guide. Inpatient/outpatient resources provided with feeding sheet, name written on the communication board, and the mom/baby guide. Parents voiced understanding of information, demonstrated learning and will call if there is a request for assistance. Reported to the Primary RN.
[2023-07-12 16:45] VITALS: BP 113/65
[2023-07-12] MEDS: LORATADINE 10 MG TABLET PO (17:21)
[2023-07-12] MEDS: SIMETHICONE 80 MG TAB.CHEW PO (17:21)
[2023-07-12] MEDS: LANOLIN (LANSINOH) 7.5 GM CREAM 1 APPLIC TOPICAL (17:21)
[2023-07-12 20:50] VITALS: BP 113/67; PULSE 85; RESP 18; TEMP 36.4
--- NOTE | 2023-07-12 20:50 | PC.NURSE ---
Patient instructed on viewing the discharge video Mother & Baby Care, The First Two Weeks online. Patient was given the opportunity and encouraged to ask questions. Patient verbalized understanding of information shared and has been given the mother/baby guide for home reference.
[2023-07-13 00:10] VITALS: BP 116/72; PULSE 74
[2023-07-13] MEDS: IBUPROFEN 600 MG TABLET PO (05:21)
--- NOTE | 2023-07-13 07:37 | PM.OBPNVD ---
OB - PN: Subj Subjective Date/time seen: 07/13/23 07:37 Interval history: Patient comments: no complaints and pain well controlled baby status: doing well OB - PN: Obj Data Labs 07/12/23 04:53 OB - PN A/P Plan day: 2 Plan: routine care, follow up 6 weeks and other (plans POP until dc home) Time Spent With Patient Time: Total time spent is greater than 50% in coordination of care (as documented) at patient's floor/unit and/or counseling patient: Exam : Bimanual exam- vagina & uterus: other (Uterus firm, nt @U)
[2023-07-13 09:00] VITALS: BP 116/76; PULSE 57; RESP 16; TEMP 36.4; O2SAT 100
[2023-07-13] MEDS: ACETAMINOPHEN 325 MG TABLET 650 MG PO (09:06)
[2023-07-13] MEDS: MULTIVIT/MIN/PREN/FOL AC/IRON TABLET 1 TAB PO (09:07)
[2023-07-13] MEDS: SIMETHICONE 80 MG TAB.CHEW PO (09:07)
[2023-07-13] MEDS: DOCUSATE SODIUM 100 MG CAPSULE PO (09:07)
[2023-07-13] MEDS: WITCH HAZEL 40 PADS 1 PAD TOPICAL (09:07)
[2023-07-13] MEDS: BENZOCAINE 20% AER SPR (*SP) 56 GM CAN 1 SPRAY TOPICAL (09:07)
[2023-07-13 14:00] VITALS: BP 130/82; PULSE 64; RESP 18; O2SAT 97
--- NOTE | 2023-07-13 14:17 | PC.NURSE ---
Breast pump provided due to ineffective feedings and weightloss. Instructions given on cleaning, care, usage, that there should be no pain, pumping schedule for milk production, collection, and storage of human milk. Patient was assessed for correct placement, flange size, to pump for comfort and nipple stretching/stimulation for adequate milk production every 3 hours (8 times in 24 hours) 1-2 times at night. Parents are encouraged to record the pumping schedule on the feeding sheet.?Mother voiced understanding of the education shared along with mom/baby guide and the pump measurement, flange fit handout for additional resource information.
--- NOTE | 2023-07-13 16:16 | PC.NURSE ---
Dr Emanuel ok with pt not coming back for follow up visit since pt lives in [place], [place]. Pre-eclampsia signs and symptoms discussed, and when to call MD, pt verbalized understanding.
--- NOTE | 2023-07-13 17:10 | PC.NURSE ---
Pt made a NCB
[2023-07-16 09:58] VITALS: BP 130/85; PULSE 72; RESP 18; TEMP 36.6; O2SAT 100
== END 2023-07-13 17:10 | disposition home or self-care (01) | DRG 807 ==
LOC: ANHLDR 12:04 → ANHOB2 15:16
PROVIDERS: Advanced Practice Midwife; Admitting Provider Obstetrics & Gynecology Gynecology; Visit Provider Obstetrics & Gynecology Gynecology
DX: O13.4 Gestational [pregnancy-induced] hypertension without significant proteinuria, complicating childbirth (principal); Z37.0 Single live birth; Z3A.39 39 weeks gestation of pregnancy; O70.0 First degree perineal laceration during delivery; O71.82 Other specified trauma to perineum and vulva
CPT/HCPCS: 36415; 85014; 85018; 85025; 86592; 86850; 86900; 86901; A9270; J2590; J2795; J7120